=== PATIENT | male | born 1990 | race African-American/Black ===

== ENCOUNTER 2017-02-03 10:56 | Emergency (ER) | payer BC, SELFPAY | END 2017-02-03 11:45 | disposition home or self-care (01) | LOC: SCSER 10:56 | DX: H66.92 Otitis media, unspecified, left ear (principal); J06.9 Acute upper respiratory infection, unspecified; F17.210 Nicotine dependence, cigarettes, uncomplicated | CPT/HCPCS: 99283 ==

== ENCOUNTER 2017-03-19 09:36 | Emergency (ER) | payer BC ==
[2017-03-19 10:12] LABS: Bilirubin Negative (Negative); Blood, Urine Large (Negative); Glucose, Urine (Dipstick) Negative (Negative); Leukocyte Large (Negative); Nitrite Positive (Negative); Protein, Urine (Dipstick) 100 mg/dL (Neg-Trace); Specific Gravity, Urine 1.015 (1.005-1.030); Urobilinogen 0.2 mg/dL (0.2-1.0); pH, Urine 8.5 (5.0-9.0)
[2017-03-19 10:19] LABS: Clarity Cloudy (Clear)
[2017-03-19 10:25] LABS: Bacteria/HPF 3+ HPF (None Seen); RBC/HPF 21-50 HPF (0-3); Squamous Epithelial 0-3 HPF (0-3)
== END 2017-03-19 10:42 | disposition home or self-care (01) ==
LOC: SCSER 09:36
DX: N39.0 Urinary tract infection, site not specified (principal); F17.210 Nicotine dependence, cigarettes, uncomplicated
CPT/HCPCS: 81003; 81015; 99283

== ENCOUNTER 2017-12-31 10:00 | Emergency (ER) | payer BC, SELFPAY ==
[2017-12-31] MEDS ORDERED: Ketorolac Tromethamine 30 MG/ML VIAL ONE (10:36)
--- NOTE | 2017-12-31 11:01 | RAD ---
LUMBAR SPINE 3 VIEWS: Date: 12/31/17 HISTORY: Low back pain. COMPARISON: None. FINDINGS: There is no acute fracture or malalignment. Five non-rib bearing lumbar-type vertebra. Along the late ral margin of the second transverse process is a triangular shaped radiopacity which may reflect a ur eteral calculus. IMPRESSION: Possible left-sided ureteral calculus at the level of the L2 transverse process. Nonemergent CT may b e beneficial. POS: HENRI
[2017-12-31 11:43] LABS: Anion Gap 11 mmol/L (10-20); BUN (Urea Nitrogen) 14 mg/dL (8.9-20.6); Calc. Creatinine Clearance 0 mL/min (70-130); Calcium 9.2 mg/dL (7.8-10.44); Carbon Dioxide 25 mmol/L (22-29); Chloride 109 mmol/L (98-107); Estimated GFR-MDRD 60; Glucose 95 mg/dL (70-105); Potassium 4.1 mmol/L (3.5-5.1); Sodium 141 mmol/L (136-145)
[2017-12-31 11:52] LABS: Eosinophils 2 % (0-10); Hemoglobin 17.4 g/dL (14.0-18.0); Lymphocytes 27 % (21-51); MDiff Complete? YES; Mean Corpuscular HGB CONC 33.3 g/dL (32.0-36.0); Mean Corpuscular Hemoglobin 28.4 pg (27.0-31.0); Mean Corpuscular Volume 85.4 fL (78.0-98.0); Mean Platelet Volume 8.6 fL (7.4-10.4); Monocytes 5 % (0-10); Neutrophil 50 % (42-75); PLT Morphology Comment Appears Adequate; Platelet Count 133 thou/uL (130-400); RBC Distribution Width 11.4 % (11.5-14.5); Reactive Lymphocytes 16 % (0-10); Red Blood Cell (RBC) Count 6.11 mill/uL (4.70-6.10); White Blood Cell (WBC) Count 5.9 thou/uL (4.8-10.8)
[2017-12-31 12:08] LABS: Bilirubin Negative (Negative); Blood, Urine Negative (Negative); Clarity Clear (Clear); Glucose, Urine (Dipstick) Negative (Negative); Leukocyte Negative (Negative); Nitrite Negative (Negative); Protein, Urine (Dipstick) 100 mg/dL (Neg-Trace); Urobilinogen 0.2 mg/dL (0.2-1.0); pH, Urine 6.5 (5.0-9.0)
[2017-12-31 12:09] LABS: Bacteria/HPF None Seen HPF (None Seen); RBC/HPF 0-3 HPF (0-3); Squamous Epithelial 0-3 HPF (0-3); WBC/HPF 0-3 HPF (0-3)
--- NOTE | 2017-12-31 12:09 | CT ---
CT ABDOMEN AND PELVIS WITHOUT CONTRAST: Date: 12/31/17 PROVIDED CLINICAL HISTORY: Low back pain. FINDINGS: Comparison made with the study dated 08/25/16. The visualized lung bases are free of significant opacity. Marked distention of the renal collecting systems and ureters is redemonstrated, similar to prior. Th e urinary bladder wall appears thickened diffusely. There is no evidence for urinary tract calculi. T he solid abdominal organs are suboptimally evaluated in the absence of IV contrast material but demon strate an otherwise unremarkable unenhanced CT appearance. There is no bowel dilatation, inflammatory fat stranding, free fluid, or free air apparent. Normal appearing anterior abdominal wall musculature is not identified, as noted on the prior studies . The osseous structures demonstrate no concerning lytic or blastic lesions. IMPRESSION: 1. Thickening of the urinary bladder wall. Correlate with concerns for cystitis. 2. Otherwise stable exam. POS: BRAULIO
== END 2017-12-31 12:24 | disposition home or self-care (01) ==
LOC: SCSER 10:00
DX: M54.16 Radiculopathy, lumbar region (principal); I12.9 Hypertensive chronic kidney disease with stage 1 through stage 4 chronic kidney disease, or unspecified chronic kidney disease; N18.9 Chronic kidney disease, unspecified; F17.210 Nicotine dependence, cigarettes, uncomplicated
CPT/HCPCS: 36415; 72100; 74176; 80048; 81003; 81015; 85025; 96372; J1885